=== PATIENT | female | born 1995 | race Caucasian/White ===

== ENCOUNTER 2020-04-17 17:18 | Inpatient (IN) ==
--- NOTE | 2020-04-17 20:38 | History & Physical Report ---
Date of Service April 17, 2020 Assessment & Plan (1) Desires (vaginal after ) trial: (2) Uterine contractions during : likely some effacement compared to prior exam by nurse, given pt subjectively feels her ctx are stronger, will monitor again for 2hr and reev aluate cx, no evid of active labor, will allow to ambulate with intermittent monitoring for now. fetus categ 1. discussed that if no change in 2hr, can offer mso4 rest as option given she feels ctx strong despite no progress or d/c home. History of Present Illness Chief Complaint: regular ctx Primary Care Provider: NO PCP 24yo at 39+wks lester presents to L&D with cc as noted. She notes increased intensity of ctx this afternoon and came to L&D for labor check at about 6pm. Cx then was 1cm/50%/ posterior. She notes ctx since then are more intense. Denies rom, vb. +FM. PNC c/b 1. Prior c/s, desires trial 2. GBS positive PNL RH pos, RI, GBS positive, covid Neg OBH: c/s at term JCBlair, intol of labor, sab x 1 GYNH: neg paps, no stds All Active Problems Migraine without aura Migraine Desires (vaginal after ) trial Encounter for supervision of normal in multigravida, antepartum Previous delivery affecting Allergies Allergy/AdvReac Type Severity Reaction Status Date / Time diphenhydramine Allergy Severe Anaphylaxis Verified 04/17/20 17:31 [From Benadryl Allergy] Home Medications Medication Instructions Recorded Confirmed Type PNV cmb#95-ferrous fumarate-FA 1 tab PO DAILY 04/17/20 04/17/20 History [] calcium carbonate-vitamin D3 1 tab PO DAILY 04/17/20 04/17/20 History [Calcium + D] Patient History Medical History Abnormal biochemical finding on screening of mother Cervical cancer screening History of chicken pox Missed headache in second trimester Vaginal bleeding in patient after first trimester Surgical History S/P section S/P cholecystectomy S/P wisdom tooth extraction Family History Mother Hypertension Father Hypertension Social History Smoking Status: Never smoker Hx Alcohol Use: No Hx Substance Use: No Preferred Language: Wolof Communication Ability: Effective Merchandise Deliverer Required: No Beliefs That Will Affect Care: None marital status: marital status details: Gregg Espinosa (26) [phone] Current Living Situation: Spouse Current Living Situation Comment: lives with spouse, daughter, hamster, cats- spouse changing litter current occupational status: unemployed current occupation: homemaker Other Information That Helps Us Care for You: No Feels Safe at Home: Yes Safety Concerns: Feels Safe At This Time Assistive Devices: None Physical Exam Constitutional: WD/WN, vitals as above Gastrointestinal (Abdomen): Percussion/Palpation: abdomen soft (gravid); abdomen nontender Neurologic: grossly normal Psychiatric: A+Ox3, euthymic affect Genitourinary: Manual OB Exam: + cervical dilation (1+), + cervical effacement (75%) and + station -2 OB Exam Monitor Tracing: + external FHT monitor used (150 mod variability reactive ), + external uterine monitor used (q1-3), + category I and + normal FHT variability Results & Data ([facility]) Vital Signs (Past 12 Hours) Vital Signs Temp Pulse Resp BP 04/17/20 17:35 98.2 F 92 H 20 124/70 04/17/20 17:24 98.2 F 92 H 20 124/70 Coding Level of Care Code None Diagnoses Desires (vaginal after ) trial O34.219 Uterine contractions during O62.2
[2020-04-17] MEDS ORDERED: MoRPHine SULFATE 10 MG/ML CARP/VIAL IM STA (22:28)
[2020-04-17] MEDS ORDERED: PROMETHAZINE HCL INJ 25 MG/ML 1 ML VIAL IM STA (22:28)
--- NOTE | 2020-04-17 22:28 | Obstetrical Progress Note ---
Date of Service April 17, 2020 Assessment & Plan (1) Desires (vaginal after ) trial: (2) Uterine contractions during : discussed with patient, no significant change. fhts categ 1. offered morphine rest and she accepts. Subjective pt says her ctx are strong. denies rom, no vb. +FM Review of Systems Review of Systems: per hpi Physical Exam Constitutional: WD/WN, vitals as above Psychiatric: A+Ox3, euthymic affect Genitourinary: Manual OB Exam: + cervical dilation (1+), + cervical effacement 80% and + station -2 OB Exam Monitor Tracing: + external FHT monitor used (155 mod variability), + external uterine monitor used (q2-5), + category I and + normal FHT variability Results & Data ([facility]) Vital Signs (Past 12 Hours) Vital Signs Temp Pulse Resp BP 04/17/20 17:35 98.2 F 92 H 20 124/70 04/17/20 17:24 98.2 F 92 H 20 124/70 PG Care Time/CCT Total # of Minutes Spent Total Time Spent with Patient: Total time spent is greater than 50% in coordination of care (as documented) at patient's floor/unit and/or counseling patient: Coding Level of Care Code None Diagnoses Desires (vaginal after ) trial O34.219 Uterine contractions during O62.2
[2020-04-18] MEDS: LACTATED RINGER'S 1,000 ML IV SCH ×4 (02:09→23:03)
[2020-04-18] MEDS ORDERED: ceFAZolin 2000MG 2,000 MG/15 ML SYR IV SCH (06:00)
[2020-04-18] MEDS ORDERED: PENICILLIN G POTASSIUM 3 MU in DEXTROSE 5% 100 ML IV PRN (06:29)
[2020-04-18] MEDS ORDERED: PENICILLIN G POTASSIUM 6 MU in DEXTROSE 5% 250 ML IV STA (06:29)
[2020-04-18] MEDS ORDERED: OXYTOCIN 30 UNITS/500 ML BAG IV PRN (06:29)
[2020-04-18] MEDS ORDERED: LACTATED RINGER'S 1,000 ML IV PRN (06:29)
[2020-04-18] MEDS ORDERED: ePHEDrine sulfate 50 MG/ML AMP ONE (06:34)
[2020-04-18] MEDS ORDERED: SODIUM CHLORIDE 0.9% INJ 10 ML VIAL ONE ×2 (06:34→07:38)
[2020-04-18] MEDS ORDERED: BUPIVACAINE 0.25% 30 ML VIAL ONE (06:35)
[2020-04-18] MEDS ORDERED: fentaNYL citrate 100 MCG/2 ML VIAL ONE ×2 (06:35→07:29)
[2020-04-18] MEDS ORDERED: fentaNYL 2MCG/ML ROPIVACAINE 1.25MG/ML 100 ML BAG EPI ONE (06:35)
[2020-04-18 07:07] LABS: Hematocrit (blood only) 36.7 % (37-47); Hemoglobin 12.1 g/dL (12.0-16.0); Mean Corpuscular Hemoglobin 30.3 pg (25-34); Mean Platelet Volume 10.5 fL (7.4-10.4); Platelet Count 248 K/uL (130-400); RDW Coefficient of Variation 13.6 % (11.5-14.5); RDW Standard Deviation 45.3 fL (36.4-46.3); Red Blood Count 3.99 M/uL (4.2-5.4); White Blood Count 12.07 K/uL (4.8-10.8)
[2020-04-18] MEDS ORDERED: LACTATED RINGER'S 1,000 ML IV SCH (07:15)
--- NOTE | 2020-04-18 07:16 | Labor Progress Brief Note ---
Date of Service April 18, 2020 Subjective Reason For Note: Change In Status pt with large amount of vaginal mucus, ctx are less frequent. initial eval about 1hr ago with cx 5cm but ?early decels or other decels. Assessment & Plan (1) Desires (vaginal after ) trial: (2) Active labor at term: (3) heart deceleration: discussed with pt since placing internal monitoring, noting occas variable and occas late decel. she is remote from delivery and i rec c/s. she agrees, consent rev and signed. anesth, or, and peds aware. categ 2 fhts. Admission and Anticipated Discharge Date Admission Date: April 18, 2020 Physical Exam Constitutional: WD/WN, vitals as above Genitourinary: Manual OB Exam: + cervical dilation 6 cm, + cervical effacement 80%, + station -2 and + amniotic fluid (arom and iupc and fse placed. ) OB Exam Monitor Tracing: + external FHT monitor used (150 ? decels, ? early), + external uterine monitor used (q2-5), + category II and + normal FHT variability Results & Data ([facility]) Vital Signs (Past 12 Hours) Vital Signs Temp Pulse Resp BP Pulse Ox 04/18/20 07:07 173 H 98 04/18/20 07:02 88 98 04/18/20 06:57 85 99 04/18/20 06:52 85 100 04/18/20 06:47 87 98 04/18/20 06:42 91 H 99 04/18/20 06:37 83 98 04/18/20 06:32 96 H 98 04/18/20 06:27 105 H 100 04/18/20 06:22 75 97 04/18/20 06:17 74 97 04/18/20 06:12 73 99 04/18/20 06:07 80 100 04/18/20 06:02 75 98 04/18/20 05:57 84 99 04/18/20 05:52 96 H 98 04/18/20 05:47 68 96 04/18/20 05:42 79 97 04/18/20 05:37 83 98 04/18/20 05:32 68 97 04/18/20 05:27 94 H 96 04/18/20 05:22 60 98 04/18/20 05:19 83 94 11/18/20 05:17 67 95 11/18/20 05:12 72 96 /18/20 05:07 69 95 /18/20 05:02 66 96 18/20 04:57 67 96 18/20 04:52 69 96 /18/20 04:47 80 98 /18/20 04:45 99.0 F 80 18 97/54 L 18/20 04:42 97 H 99 18/20 04:37 92 H 98 18/20 04:32 86 97 18/20 04:27 96 H 98 18/20 04:22 85 99 /18/20 04:17 75 98 18/20 04:12 79 97 18/20 04:07 85 97 18/20 04:02 101 H 99 18/20 03:57 79 97 18/20 03:52 76 97 /18/20 03:47 69 96 18/20 03:42 82 96 18/20 03:37 109 H 98 18/20 03:32 70 98 /18/20 03:27 71 97 18/20 03:22 94 H 99 18/20 03:17 85 100 18/20 03:12 87 100 18/20 03:07 108 H 97 18/20 03:02 95 H 99 18/20 03:00 18 18/20 02:57 70 98 /18/20 02:52 79 99 18/20 02:47 103 H 100 18/20 02:35 104 H 99 18/20 02:30 81 97 /18/20 02:25 69 96 18/20 02:20 108 H 98 18/20 02:15 70 96 18/20 02:10 69 97 18/20 02:05 88 98 18/20 02:00 80 98 18/20 01:55 69 96 /18/20 01:50 71 96 /18/20 01:49 105 H 93 /18/20 01:45 68 96 18/20 01:40 72 96 /18/20 01:35 71 97 18/20 01:30 81 97 /18/20 01:25 84 96 11/18/20 01:20 86 96 04/18/20 01:15 70 97 04/18/20 01:10 68 97 04/18/20 01:05 66 96 04/18/20 01:00 72 98 04/18/20 00:55 87 97 04/18/20 00:54 86 94 04/18/20 00:50 95 H 96 04/18/20 00:45 72 96 04/18/20 00:40 85 96 04/18/20 00:35 86 97 04/18/20 00:30 98 H 18 99 04/18/20 00:25 67 96 04/18/20 00:20 71 97 04/18/20 00:15 69 97 04/18/20 00:10 75 97 04/18/20 00:05 72 95 04/18/20 00:00 94 H 18 98 04/17/20 23:55 67 97 04/17/20 23:50 79 98 04/17/20 23:45 71 96 04/17/20 23:40 93 H 97 04/17/20 23:35 69 97 04/17/20 23:30 71 18 97 04/17/20 23:25 67 97 04/17/20 23:20 91 H 99 04/17/20 23:15 77 99 04/17/20 23:10 74 99 04/17/20 23:05 72 98 04/17/20 23:00 86 18 98 04/17/20 22:55 76 98 04/17/20 22:50 98.8 F 75 129/66 98 04/17/20 22:45 73 98 Coding Level of Care Code None Diagnoses Desires (vaginal after ) trial O34.219 Active labor at term heart deceleration
--- NOTE | 2020-04-18 07:18 | Anesthesiology Consultation ---
Date of Service April 18, 2020 Assessment & Plan (1) Encounter for pre-operative examination: Chart Review Chart Review: Acceptable Risk for Surgery and Patient NOT seen in Pre Admission Testing Consults Requested none ASA ASA2E Proposed Anesthesia Anesthesia Type: Spinal Risk / Benefits Reviewed With: PT / POA / Parent / Guardian, Accepts Plan and Informed Consent Obtained History Height/Weight Height: 5 ft 1 in Weight: 82.1 kg Allergies Allergy/AdvReac Type Severity Reaction Status Date / Time diphenhydramine Allergy Severe Anaphylaxis Verified 04/17/20 17:31 [From Benadryl Allergy] Medications Home Medications Medication Instructions Recorded Confirmed Last Taken PNV cmb#95-ferrous fumarate-FA 1 tab PO DAILY 04/17/20 04/17/20 04/16/20 23:00 [] calcium carbonate-vitamin D3 1 tab PO DAILY 04/17/20 04/17/20 04/16/20 23:00 [Calcium + D] Active Medications Generic Name Dose Route Start Last Admin Trade Name Freq PRN Reason Stop Dose Admin Lactated Ringer's 1,000 mls @ 125 mls/hr 04/18/20 02:00 04/18/20 05:39 Lr IV 05/18/20 01:59 999 mls/hr .Q8H NILSON Administration Penicillin G Potassium 6 mu/ 262 mls @ 262 mls/hr 04/18/20 06:29 04/18/20 06:48 Dextrose IV 04/18/20 07:28 262 mls/hr NOW STA Administration Past Medical History Medical History Abnormal biochemical finding on screening of mother Cervical cancer screening History of chicken pox Missed headache in second trimester Vaginal bleeding in patient after first trimester Past Family History Family History Mother Hypertension Father Hypertension Past Surgical History Surgical History S/P section S/P cholecystectomy S/P wisdom tooth extraction Social History Smoking Status: Never smoker Hx Alcohol Use: No Hx Substance Use: No Physical Exam Vital Signs Last Vital Signs Temp 37.2 C 04/18/20 04:45 Pulse 98 H 04/18/20 07:14 Resp 18 04/18/20 04:45 BP 97/54 L 04/18/20 04:45 Pulse Ox 98 04/18/20 07:14 Constitutional not obese (gravid uterus) ENMT Mouth: no TMJ abnormality and oral opening not small Thyromental Distance: > or= 3.5 Finger Breadths Mallampati Class: III Neck normal visual inspection; neck extension not limited Respiratory normal respiratory effort Auscultation: lungs clear to auscultation bilaterally Cardiovascular Rate/Rhythm: regular rate and regular rhythm Heart Sounds: no murmur Neurologic moves all extremities Motor/Sensory: no sensory deficit Psychiatric Orientation: alert and oriented x 3 Testing Laboratory Results 04/18/20 06:51
[2020-04-18] MEDS ORDERED: CITRIC ACID/SODIUM CITRATE 15 ML UDC ONE (07:25)
[2020-04-18] MEDS ORDERED: MoRPHine SULFATE PF 1 MG/ML 10 ML AMP/VIAL ONE (07:29)
--- NOTE | 2020-04-18 07:35 | Labor Progress Brief Note ---
Date of Service April 18, 2020 Subjective pt ready to proceed with c/s, consent signed. Assessment & Plan (1) Desires (vaginal after ) trial: (2) Active labor at term: (3) heart deceleration: decels intermittent remote from delivery in trial. rec c/s to couple and as stated before, couple agrees. Admission and Anticipated Discharge Date Admission Date: April 18, 2020 Physical Exam Constitutional: WD/WN, vitals as above Genitourinary: Manual OB Exam: + cervical dilation (no change) OB Exam Monitor Tracing: + scalp electrode used (150, mod variabilty categ2) and + intra-uterine pressure catheter used (mvu's inadeq) contractions that are stronger, fetus categ 2, less strong categ 1. Results & Data ([facility]) Vital Signs (Past 12 Hours) Vital Signs Temp Pulse Resp BP Pulse Ox 04/18/20 07:29 106 H 98 04/18/20 07:24 86 98 04/18/20 07:19 101 H 98 04/18/20 07:18 85 126/59 L 04/18/20 07:14 98 H 98 04/18/20 07:07 173 H 98 04/18/20 07:02 88 98 04/18/20 06:57 85 99 04/18/20 06:52 85 100 04/18/20 06:47 87 98 04/18/20 06:42 91 H 99 04/18/20 06:37 83 98 04/18/20 06:32 96 H 98 04/18/20 06:27 105 H 100 04/18/20 06:22 75 97 04/18/20 06:17 74 97 04/18/20 06:12 73 99 04/18/20 06:07 80 100 04/18/20 06:02 75 98 04/18/20 05:57 84 99 04/18/20 05:52 96 H 98 04/18/20 05:47 68 96 04/18/20 05:42 79 97 04/18/20 05:37 83 98 04/18/20 05:32 68 97 04/18/20 05:27 94 H 96 04/18/20 05:22 60 98 04/18/20 05:19 83 94 04/18/20 05:17 67 95 11/18/20 05:12 72 96 11/18/20 05:07 69 95 /18/20 05:02 66 96 18/20 04:57 67 96 18/20 04:52 69 96 18/20 04:47 80 98 18/20 04:45 99.0 F 80 18 97/54 L 18/20 04:42 97 H 99 18/20 04:37 92 H 98 18/20 04:32 86 97 18/20 04:27 96 H 98 18/20 04:22 85 99 18/20 04:17 75 98 18/20 04:12 79 97 18/20 04:07 85 97 18/20 04:02 101 H 99 18/20 03:57 79 97 18/20 03:52 76 97 18/20 03:47 69 96 18/20 03:42 82 96 18/20 03:37 109 H 98 18/20 03:32 70 98 18/20 03:27 71 97 18/20 03:22 94 H 99 18/20 03:17 85 100 18/20 03:12 87 100 18/20 03:07 108 H 97 18/20 03:02 95 H 99 18/20 03:00 18 18/20 02:57 70 98 18/20 02:52 79 99 18/20 02:47 103 H 100 18/20 02:35 104 H 99 18/20 02:30 81 97 18/20 02:25 69 96 18/20 02:20 108 H 98 18/20 02:15 70 96 18/20 02:10 69 97 18/20 02:05 88 98 18/20 02:00 80 98 18/20 01:55 69 96 18/20 01:50 71 96 18/20 01:49 105 H 93 18/20 01:45 68 96 18/20 01:40 72 96 /18/20 01:35 71 97 18/20 01:30 81 97 18/20 01:25 84 96 18/20 01:20 86 96 04/18/20 01:15 70 97 04/18/20 01:10 68 97 04/18/20 01:05 66 96 04/18/20 01:00 72 98 04/18/20 00:55 87 97 04/18/20 00:54 86 94 04/18/20 00:50 95 H 96 04/18/20 00:45 72 96 04/18/20 00:40 85 96 04/18/20 00:35 86 97 04/18/20 00:30 98 H 18 99 04/18/20 00:25 67 96 04/18/20 00:20 71 97 04/18/20 00:15 69 97 04/18/20 00:10 75 97 04/18/20 00:05 72 95 04/18/20 00:00 94 H 18 98 04/17/20 23:55 67 97 04/17/20 23:50 79 98 04/17/20 23:45 71 96 04/17/20 23:40 93 H 97 04/17/20 23:35 69 97 04/17/20 23:30 71 18 97 04/17/20 23:25 67 97 04/17/20 23:20 91 H 99 04/17/20 23:15 77 99 04/17/20 23:10 74 99 04/17/20 23:05 72 98 04/17/20 23:00 86 18 98 04/17/20 22:55 76 98 04/17/20 22:50 98.8 F 75 129/66 98 04/17/20 22:45 73 98 Coding Level of Care Code None Diagnoses Desires (vaginal after ) trial O34.219 Active labor at term heart deceleration
[2020-04-18] MEDS ORDERED: OXYTOCIN 10 UNITS/ML VIAL ONE (07:38)
[2020-04-18] MEDS ORDERED: ONDANSETRON INJ 2 MG/ML 2 ML VIAL ONE (07:38)
[2020-04-18] MEDS ORDERED: KETOROLAC 30 MG/ML VIAL ONE (08:28)
--- NOTE | 2020-04-18 08:39 | Post Operative Brief Note ---
PG Immediate Post Op with CF Date of Surgery April 18, 2020 Pre & Post Diagnosis Operation Date: 04/18/20 07:30 Pre-Op Diagnosis: 39 plus weeks gestation trial vaginal after active labor intolerance to labor Post-Op Diagnosis: same I identified the patient and participated in the time-out.: Yes Procedure Operation Date: 04/18/20 07:30 Actual Procedures p Repeat Low Transverse Section in labor and delivery for live female delivered at 0804(Left) - Jessi Walton MD, FACOG Surgeon Jessi Walton MD, FACOG Engineering Designer jeremi Estimated Blood Loss 600 Findings Consistent with Post-Op Diagnosis (viable female, body and nuchal cord noted, apgars 9,9. mec stained fluid. normal uterus, tubes and ovaries bilaterally) Fluids 1250 Specimens Specimen Description: placenta-exam cord blood arterial and venous cord blood gases Drains Agosto Catheter Anesthesia Type Spinal Complications none Disposition Accompanied Patient To Recovery: No Disposition: L&D
--- NOTE | 2020-04-18 08:46 | Operative Report ---
PG Post Operative Report Pre & Post Diagnosis Operation Date: 04/18/20 07:30 Pre-Op Diagnosis: 39+weeks EGA Vaginal after trial Active labor intolerance to labor Post-Op Diagnosis: Repeat low transverse uterine section for delivery of live female at 0804 I identified the patient and participated in the time-out.: Yes Procedure Operation Date: 04/18/20 07:30 Actual Procedures Repeat Low Transverse Section Surgeon Jessi Walton MD, FACOG Clarifying Plant Operator Derrick Estimated Blood Loss 600 Findings Consistent with Post-Op Diagnosis (viable female, body and nuchal cord noted, apgars 9,9. mec stained fluid. normal uterus, tubes and ovaries bilaterally) Fluids 1250 Specimens placenta, cord blood, cord gases Drains sandoval Anesthesia Type Spinal Complications none Disposition Accompanied Patient To Recovery: No Disposition: L&D Indications 24yo at 39wks who presented in latent labor with planned trial. She was given morphine rest overnight and subsequently progressed to 5cm. Unfortunately the heart tones became category 2 and she was remote from delivery and recommended to proceed with section and she agreed. See the notes from labor for more detail. Description of Procedure The patient was taken to the operating room and identified. After adequate anesthesia was obtained, she was placed in the supine position with a leftward tilt on the operating table and prepped and draped in the usual sterile fashion. A sandoval catheter had already been placed. The knife was used to create a Pfannensteil skin incision that was carried down to the underlying layer of fascia. The fascia was nicked in the midline and this opening was extended laterally using Nunn scissors. Jacinto clamps were placed on the superior and inferior aspect of the fascial incision tenting it upward and the underlying rectus muscles were dissected off the overlying fascia both sharply and bluntly using Nunn scissors. The rectus muscles were bluntly in the midline. The peritoneal cavity was bluntly entered into. This opening was stretched. The bladder blade was placed. The vesicouterine peritoneum was elevated and opened up into and the bladder flap was created digitally and bladder blade was replaced. The knife was used to create a hysterotomy and this opening was stretched. The operators hand was placed through the hysterotomy and the bladder blade was removed. The head was elevated and flexed and with fundal pressure the head was delivered. The shoulders and body were rapidly delivered. The cord was clamped and cut and the 's mouth and nares were bulb suction. The infant was handed off to the awaiting pediatricians. Cord blood was obtained. The placenta was manually expressed. The uterus was exteriorized and cleared of all clots and debris. Dilute IV Pitocin was begun. The uterine tone was improving. The hysterotomy was closed in a running interlocking fashion using 0 Vicryl followed by a second imbricating layer of 0 Vicryl. The hysterotomy was hemostatic. The pelvis was evaluated and any blood and clot was evacuated. The uterus was returned to the abdomen. The gutters were cleared of all clots and debris. The hysterotomy was reinspected and noted to be hemostatic. The fascia was then closed in running fashion using 0 Vicryl. The subcutaneous fat was copiously irrigated and reapproximated using 2-0 chromic. The skin was closed in a subcuticular fashion using 4-0 Monocryl. At this point the procedure was terminated. The patient was transferred to the recovery room in stable condition. All sponge, lap and needle counts are correct x2. I attest to the content of the Intraoperative Record and any orders documented therein. Any exceptions are noted below. OB Procedure charges OB Charges 73502 C/S p Trial
[2020-04-18 08:51] LABS: Base Excess Cord Arterial Bld -1.5 mEq/L (-9-1.8); CO2 Cord Arterial Blood 58 mmHg (39.1-73.5); HCO3 Cord Arterial Blood 27 mmol/L (19.7-28.5); PO2 Cord Arterial Blood 12 mmHg (4.1-31.7); pH Cord Arterial Blood 7.28 (7.1-7.38)
[2020-04-18 08:56] LABS: Oxygen Sat Cord Arterial Blood < 60.0 % (<60)
[2020-04-18 08:57] LABS: Base Excess Cord Venous Blood -1.7 mEq/L (-7.7-1.9); Cord Venous Blood HCO3 24 mmol/L (18.4-26.8); Cord Venous Blood PCO2 45 mmHg (30.4-57.2); Cord Venous Blood PO2 23 mmHg (14.1-43.3); Cord Venous Blood pH 7.35 (7.20-7.44)
[2020-04-18 08:58] LABS: O2 Saturation Cord Venous Bld < 60.0 % (<68)
--- NOTE | 2020-04-18 08:59 | Anesthesiology Progress Note ---
Date of Service April 18, 2020 Anesthesia Post Procedure Vital Signs Vital Signs: Temp Pulse Resp BP Pulse Ox 04/18/20 08:57 68 100/58 L 04/18/20 08:56 68 95 04/18/20 08:55 68 93 04/18/20 08:51 71 96 20 08:47 69 104/52 L 04/18/20 08:46 78 97 04/18/20 07:29 106 H 98 04/18/20 07:24 86 98 04/18/20 07:19 101 H 98 04/18/20 07:18 85 126/59 L 04/18/20 07:14 98 H 98 04/18/20 07:07 173 H 98 04/18/20 07:02 88 98 04/18/20 06:57 85 99 04/18/20 06:52 85 100 04/18/20 06:47 87 98 04/18/20 06:42 91 H 99 04/18/20 06:37 83 98 04/18/20 06:32 96 H 98 04/18/20 06:27 105 H 100 04/18/20 06:22 75 97 04/18/20 06:17 74 97 04/18/20 06:12 73 99 04/18/20 06:07 80 100 04/18/20 06:02 75 98 04/18/20 05:57 84 99 04/18/20 05:52 96 H 98 04/18/20 05:47 68 96 04/18/20 05:42 79 97 04/18/20 05:37 83 98 04/18/20 05:32 68 97 04/18/20 05:27 94 H 96 04/18/20 05:22 60 98 20 05:19 83 94 20 05:17 67 95 1820 05:12 72 96 20 05:07 69 95 20 05:02 66 96 20 04:57 67 96 20 04:52 69 96 20 04:47 80 98 04/18/20 04:45 37.2 C 80 18 97/54 L 04/18/20 04:42 97 H 99 04/18/20 04:37 92 H 98 04/18/20 04:32 86 97 11/18/20 04:27 96 H 98 11/18/20 04:22 85 99 /18/20 04:17 75 98 /18/20 04:12 79 97 18/20 04:07 85 97 18/20 04:02 101 H 99 18/20 03:57 79 97 18/20 03:52 76 97 18/20 03:47 69 96 18/20 03:42 82 96 18/20 03:37 109 H 98 18/20 03:32 70 98 18/20 03:27 71 97 18/20 03:22 94 H 99 18/20 03:17 85 100 18/20 03:12 87 100 18/20 03:07 108 H 97 18/20 03:02 95 H 99 18/20 03:00 18 18/20 02:57 70 98 18/20 02:52 79 99 18/20 02:47 103 H 100 18/20 02:35 104 H 99 18/20 02:30 81 97 18/20 02:25 69 96 18/20 02:20 108 H 98 18/20 02:15 70 96 18/20 02:10 69 97 18/20 02:05 88 98 18/20 02:00 80 98 18/20 01:55 69 96 18/20 01:50 71 96 18/20 01:49 105 H 93 18/20 01:45 68 96 18/20 01:40 72 96 18/20 01:35 71 97 /18/20 01:30 81 97 18/20 01:25 84 96 /18/20 01:20 86 96 18/20 01:15 70 97 18/20 01:10 68 97 18/20 01:05 66 96 18/20 01:00 72 98 /18/20 00:55 87 97 /18/20 00:54 86 94 /18/20 00:50 95 H 96 18/20 00:45 72 96 /18/20 00:40 85 96 18/20 00:35 86 97 11/18/20 00:30 98 H 18 99 04/18/20 00:25 67 96 04/18/20 00:20 71 97 04/18/20 00:15 69 97 04/18/20 00:10 75 97 04/18/20 00:05 72 95 04/18/20 00:00 94 H 18 98 04/17/20 23:55 67 97 04/17/20 23:50 79 98 04/17/20 23:45 71 96 04/17/20 23:40 93 H 97 04/17/20 23:35 69 97 04/17/20 23:30 71 18 97 04/17/20 23:25 67 97 04/17/20 23:20 91 H 99 04/17/20 23:15 77 99 04/17/20 23:10 74 99 04/17/20 23:05 72 98 04/17/20 23:00 86 18 98 04/17/20 22:55 76 98 04/17/20 22:50 37.1 C 75 129/66 98 04/17/20 22:45 73 98 04/17/20 17:35 36.8 C 92 H 20 124/70 04/17/20 17:24 36.8 C 92 H 20 124/70 Transfer of Care Handoff Completed per policy Notes Mental Status: alert / awake / arousable and participated in evaluation Nausea / Vomiting: adequately controlled Pain: adequately controlled Airway Patency, RR, SpO2: stable & adequate BP & HR: stable & adequate Hydration State: stable & adequate Neuraxial Anesthesia: was administered and sensory block is resolving Anesthetic Complications: no major complications apparent and Pt Satisfied with anesthetic care
[2020-04-18] MEDS ORDERED: ONDANSETRON INJ 2 MG/ML 2 ML VIAL IV PRN (09:01)
[2020-04-18] MEDS ORDERED: NALOXONE HCL 0.08 MG in SYRINGE 1.8 ML IV PRN (09:01)
[2020-04-18] MEDS ORDERED: LACTATED RINGER'S 500 ML IV PRN (09:01)
[2020-04-18] MEDS ORDERED: HYDROmorphone INJ 1 MG/ML SYRINGE IV PRN (09:01)
[2020-04-18] MEDS ORDERED: NALOXONE HCL 1 MG in SODIUM CHLORIDE 0.9% 1000ML 1,000 ML IV PRN (09:01)
[2020-04-18] MEDS ORDERED: NALOXONE HCL 0.4 MG/1 ML VIAL/CARP IV PRN (09:01)
[2020-04-18] MEDS ORDERED: ePHEDrine sulfate 50 MG/ML AMP IV PRN (09:01)
[2020-04-18] MEDS ORDERED: MoRPHine SULFATE PF 1 MG/ML 10 ML AMP/VIAL INT SPINAL ONE (09:01)
[2020-04-18] MEDS ORDERED: SODIUM CHLORIDE 0.9% 1000ML 1,000 ML IV SCH (09:15)
[2020-04-18] MEDS ORDERED: DC INTRASPINAL MORPHINE SCH (09:15)
[2020-04-18] MEDS ORDERED: NO NARCOTICS OR SEDATIVES SCH (09:15)
[2020-04-18] MEDS ORDERED: BENZOCAINE 20% AER SPR 82.5 GM CAN EXT PRN (10:02)
[2020-04-18] MEDS ORDERED: DIPHTHERIA/TETANUS/PERTUSSIS 0.5 ML SYR/VIAL IM ONE (10:02)
[2020-04-18] MEDS ORDERED: HYDROCORTISONE ACETATE 25 MG SUPP PR PRN (10:02)
[2020-04-18] MEDS ORDERED: SUPERCREAM 0.870% 15 GM JAR EXT PRN (10:02)
[2020-04-18] MEDS ORDERED: SENNA 8.6 MG TAB PO PRN (10:02)
[2020-04-18] MEDS ORDERED: MAGNESIUM HYDROXIDE SUSP 30 ML UDC PO PRN (10:02)
[2020-04-18] MEDS: OXYTOCIN 30 UNITS in LACTATED RINGER'S 1,000 ML IV SCH ×2 (10:49→19:17)
[2020-04-18] MEDS: KETOROLAC 30 MG/ML VIAL IV PRN ×2 (13:24→19:45)
[2020-04-18] MEDS: SIMETHICONE 80 MG CHEW PO SCH ×3 (13:39→23:03)
[2020-04-18] MEDS: DOCUSATE SODIUM 100 MG CAP PO SCH (23:02)
[2020-04-19] MEDS: LACTATED RINGER'S 1,000 ML IV SCH ×2 (01:15→11:14)
[2020-04-19] MEDS: KETOROLAC 30 MG/ML VIAL IV PRN (02:39)
[2020-04-19] MEDS ORDERED: ONDANSETRON INJ 2 MG/ML 2 ML VIAL IV PRN (03:02)
[2020-04-19] MEDS ORDERED: KETOROLAC 30 MG/ML VIAL IV PRN (03:02)
[2020-04-19] MEDS ORDERED: PROMETHAZINE HCL 25 MG in SODIUM CHLORIDE 0.9% 50 ML IV PRN (03:02)
[2020-04-19] MEDS: oxyCODONE/ACETAMINOPHEN 5mg/325mg TAB PO PRN ×3 (06:20→20:18)
--- NOTE | 2020-04-19 06:46 | Obstetrical Progress Note ---
Date of Service <Amari Vo MD - Last Filed: 04/19/20 06:46> April 19, 2020 Assessment & Plan <Amari Vo MD - Last Filed: 04/19/20 06:46> (1) Previous delivery affecting : Neisha is a 24 y/o female who is POD #1 following RCS after failed TOLAC at 39-6/7 WGA - Feels well today. Eating well, voiding well, ambulating well. - Pain well controlled with ibuprofen 600mg Q4H PRN. - Routine post-operative care -- OOB, ambulation, diet progression as tolerated - After discharge will have [address] Walton Subjective <Amari Vo MD - Last Filed: 04/19/20 06:46> Neisha is a 24 y/o female who is POD #1 following RCS after failed TOLAC at 39-6/7 WGA. She reports feeling well overall this morning. Endorses some abdominal cramping & 4/10 pain well managed on analgesics. Voiding without difficulty since Agosto removal. Tolerating meals overnight and able to ambulate some. Endorses passing gas but not yet bowel movement. Has some persistent lochia with some improvement this morning. Bottle feeding. Review of Systems Denies fever, chills, sweats Denies shortness of breath, difficulty breathing, chest pain, palpitations, chest pressure. Denies breast pain. Denies dysuria. Denies headache or changes in vision. Physical Exam <Amari Vo MD - Last Filed: 04/19/20 06:46> General: Alert, oriented. No acute distress. Cardiac: Regular rate and rhythm, no murmurs/rubs/gallops. Respiratory: Clear to auscultation bilaterally a/p, no wheezes/rales/rhonchi. No increased work of breathing. Symmetrical chest rise. No respiratory distress. Abdomen: Soft, nontender, nondistended. Bowel sounds present. Uterus: Uterine fundus firm, palpable 2-3 cm below umbilicus. Surgical bandage still in place, but adjacent area appears c/d/i. No erythema. Slight TTP. Lower Extremities: No lower extremity edema or swelling. No deep calf pain. Matthew's negative bilaterally. Results & Data ([facility]) <Amari Vo MD - Last Filed: 04/19/20 06:46> Vital Signs (Past 12 Hours) Vital Signs Temp Pulse Resp BP Pulse Ox Pulse Ox 04/19/20 03:02 18 97 04/19/20 03:01 36.6 C 75 18 93/59 L 99 04/19/20 02:00 18 99 04/19/20 01:00 18 95 04/19/20 00:00 18 98 04/18/20 23:46 36.8 C 81 18 102/65 98 04/18/20 23:00 18 95 04/18/20 22:41 16 98 04/18/20 22:00 97 04/18/20 21:53 18 94 04/18/20 21:00 18 96 04/18/20 20:00 36.8 C 88 18 94/60 L 97 97 <Trang Meza DO - Last Filed: 04/19/20 07:51> Co-Signing Physician Notes Resident Physician Supervision Note: I was present with Dr. Vo during the history and exam. I discussed the case with the resident and agree with the findings and plan as documented in the note. Any exceptions or clarifications are listed here: POD#1 doing well. Incision CDI. Continue ambulation, PO diet increase. Documented By: Trang Meza DO Resident Activity Tracking <Amari Vo MD - Last Filed: 04/19/20 06:46> Resident Involvement: Resident Care Provided Care Provided: Adult Hospital Medicine and OB Delivery
[2020-04-19 08:09] LABS: Basophils # (auto) 0.02 K/uL (0-0.2); Basophils % (auto) 0.2 %; Eosinophils # (auto) 0.13 K/uL (0-0.5); Eosinophils % (auto) 1.1 %; Hematocrit (blood only) 27.9 % (37-47); Immature Granulocytes # (auto) 0.05 K/uL (0.00-0.02); Immature Granulocytes % (auto) 0.4 %; Lymphocytes # (auto) 2.58 K/uL (1.2-3.4); Lymphocytes % (auto) 21.6 %; Mean Corpuscular Hemoglobin 30.3 pg (25-34); Mean Corpuscular Hgb Conc 32.3 g/dL (32-36); Mean Corpuscular Volume 93.9 fL (80-100); Mean Platelet Volume 10.4 fL (7.4-10.4); Monocytes # (auto) 0.92 K/uL (0.11-0.59); Monocytes % (auto) 7.7 %; Neutrophils # (auto) 8.23 K/uL (1.4-6.5); Platelet Count 228 K/uL (130-400); Red Blood Count 2.97 M/uL (4.2-5.4); White Blood Count 11.93 K/uL (4.8-10.8)
[2020-04-19] MEDS: PRENATAL VITAMIN 1 TAB PO SCH (08:47)
[2020-04-19] MEDS: DOCUSATE SODIUM 100 MG CAP PO SCH ×2 (08:47→21:18)
[2020-04-19] MEDS: SIMETHICONE 80 MG CHEW PO SCH ×4 (08:48→21:18)
[2020-04-19] MEDS: FERROUS SULFATE 325 MG TAB PO SCH (08:48)
[2020-04-19] MEDS: IBUPROFEN 600 MG TAB PO PRN ×2 (11:17→17:30)
[2020-04-20] MEDS: IBUPROFEN 600 MG TAB PO PRN ×3 (02:30→12:02)
[2020-04-20] MEDS: oxyCODONE/ACETAMINOPHEN 5mg/325mg TAB PO PRN ×3 (02:31→12:03)
--- NOTE | 2020-04-20 05:21 | Obstetrical Progress Note ---
Date of Service <Amari Vo MD - Last Filed: 04/20/20 06:22> April 20, 2020 Assessment & Plan <Amari Vo MD - Last Filed: 04/20/20 06:22> (1) Previous delivery affecting : Neisha is a 24 y/o female who is POD #2 following RCS after failed TOLAC at 39-6/7 WGA - Feels well today. Eating well, voiding well, ambulating well. - Pain well controlled with ibuprofen 600mg Q4H PRN. - Routine post-operative care -- OOB and ambulation throughout today - Patient desires to go home -- pending continued stability and peds, anticipate d/c home today - After discharge will have [address] Walton Subjective <Amari Vo MD - Last Filed: 04/20/20 06:22> Neisha is a 24 y/o female who is POD #2 following RCS after failed TOLAC at 39-6/7 WGA. She reports feeling well overall this morning. Endorses minimal abdominal cramping & pain well managed on analgesics. Voiding without difficulty. Tolerating meals overnight and able to ambulate some. Endorses passing gas but not yet bowel movement. Has some persistent lochia with some improvement this morning. Currently breast feeding without difficulty. Review of Systems Denies fever, chills, sweats Denies shortness of breath, difficulty breathing, chest pain, palpitations, chest pressure. Denies breast pain. Denies dysuria. Denies headache or changes in vision. Physical Exam <Amari Vo MD - Last Filed: 04/20/20 06:22> General: Alert, oriented. No acute distress. Cardiac: Regular rate and rhythm, no murmurs/rubs/gallops. Respiratory: Clear to auscultation bilaterally a/p, no wheezes/rales/rhonchi. No increased work of breathing. Symmetrical chest rise. No respiratory distress. Abdomen: Soft, nontender, nondistended. Bowel sounds present. Uterus: Uterine fundus firm, palpable 2 cm below umbilicus. Surgical scar clean and healing well. Lower Extremities: No lower extremity edema or swelling. No deep calf pain. Matthew's negative bilaterally. Results & Data ([facility]) <Amari Vo MD - Last Filed: 04/20/20 06:22> Vital Signs (Past 12 Hours) Vital Signs Temp Pulse Resp BP Pulse Ox 04/20/20 00:00 36.6 C 83 18 103/69 97 04/19/20 20:30 36.5 C 98 H 18 130/80 98 <Skye Chang MD, FACOG - Last Filed: 04/20/20 07:31> Co-Signing Physician Notes Resident Physician Supervision Note: I interviewed and examined the patient. Discussed with Dr. Vo and agree with findings and plan as documented in the note. Any exceptions or clarifications are listed here: Doing well. Patient desires d/c today. Instructions given. Documented By: Skye Chang MD, FACOG Resident Activity Tracking <Amari Vo MD - Last Filed: 04/20/20 06:22> Resident Involvement: Resident Care Provided Care Provided: Adult Hospital Medicine and OB Delivery
[2020-04-20 06:44] LABS: Hematocrit (blood only) 28.1 % (37-47); Hemoglobin 9.1 g/dL (12.0-16.0)
[2020-04-20] MEDS: SIMETHICONE 80 MG CHEW PO SCH (08:25)
[2020-04-20] MEDS: DOCUSATE SODIUM 100 MG CAP PO SCH (08:26)
[2020-04-20] MEDS: PRENATAL VITAMIN 1 TAB PO SCH (08:27)
[2020-04-20] MEDS: FERROUS SULFATE 325 MG TAB PO SCH (08:27)
--- NOTE | 2020-04-24 21:25 | Discharge Summary ---
Date of Service Date of admission: April 17, 2020 Date of discharge: April Admission HPI Per Admitting Provider 24yo at 39+wks lester presented to L&D with contractions with plan for . All Active Problems Migraine without aura Migraine Desires (vaginal after ) trial Encounter for supervision of normal in multigravida, antepartum Previous delivery affecting Discharge Data Consultations 04/18/20 06:29 Consult Anesthesiology Stat Procedures Performed Operation Date: 04/18/20 07:30 Actual Procedures Repeat Low Transverse Section - Jessi Walton MD, FACOG Hospital Course (1) Desires (vaginal after ) trial: (2) 39 weeks gestation of : (3) intolerance to labor, delivered, current hospitalization: The patient was admitted for observation on 04/17/20 due to intolerable contractions with no evidence of active labor for morphine rest. She did rest overnight and in the am was about 5cm dilated with intermittent contractions and then admitted in labor. She began penicillin for gbs positive status. Unfortunately, with her spontaneous labor pattern the fetus began developing decelerations of the heart rate, category 2 tracing. AROM was performed and internal monitors were placed to better assess the decelerations. No significant cervical progress was being made and due to the decelerations augmentation of labor was not prudent. Patient was counseled given that she was remote from delivery, section was recommended and she agreed. The patient underwent the above stated procedure without incident. Of note, the uterine scar at time of delivery was intact and the fetus did have a nuchal cord. Her postoperative course and recovery were uncomplicated. On her postoperative day #2 she was tolerating a regular diet, voiding spontaneously, ambulating without problem and was using oral meds for adequate pain control. Her postoperative hemoglobin was 9.1. She was given written and verbal discharge instructions and told to followup in office at 6wks. She was given appropriate pain medicine prescriptions. Coding Level of Care Code None Diagnoses Desires (vaginal after ) trial O34.219 39 weeks gestation of Z3A.39 intolerance to labor, delivered, current hospitalization O77.9
== END 2020-04-20 13:35 | disposition home or self-care (01) | DRG 788 ==
LOC: 4S1 17:18 → OPB 17:18 → 4S1 17:19 → 4S2 04-18 15:00

== ENCOUNTER 2023-08-23 07:50 | Inpatient (IN) ==
[2023-08-23] MEDS: LACTATED RINGER'S 1,000 ML IV SCH (08:00)
--- NOTE | 2023-08-23 08:02 | History & Physical Report ---
Date of Service August 23, 2023 Assessment & Plan (1) Previous delivery affecting , antepartum: Plan: Repeat section. The patient was counseled to the nature of the procedure including alternatives such as labor. Risks were discussed including bleeding infection injury to bowel bladder ureter vessels and even baby. The risks of internal organ injury were discussed as being higher with prior sections. Deep Vein Thrombosis, pulmonary embolus and breakdown of the incision discussed. Deep vein thrombosis pulmonary embolus hernia and failure of the incision to heal were discussed Patient verbalized understanding of this and was given ample time to ask questions Presents with rupture of membranes active labor with scheduled section tomorrow will arrange for section at this time History of Present Illness Primary Care Provider: NO PCP KIERRA Calculator Estimated Delivery Date Method Current WG Current Estimate 08/31/23 Ultrasound #1 38w 3d Other Estimates 08/25/23 LMP (Certain) 39w 2d LMP: 11/18/22 : 4 Full term: 2 Premature: 0 Total Number of Induced Abortions: 0 Total Number of Spontaneous Abortions: 1 Ectopics: 0 Multiple births: 0 Number of Living Children: 2 and Delivery Plans Previous x 2 - Repeat at 39 weeks. C/S SCHEDULED FOR 08/24/[address] RUIZ AND DR. AMBRIZ ASSIST Obesity (BMI between 35-39 @ beginning of ) *Growth US @ 32 wks *Weekly NSTs @ 36wks GBS Positive *Treat in Labor Allergies Allergy/AdvReac Type Severity Reaction Status Date / Time diphenhydramine Allergy Severe Anaphylaxis Verified 08/20/23 15:54 [From Benadryl Allergy] Home Medications Medication Instructions Recorded Confirmed Type 21-iron fu-folic acid 1 tab PO QAM 01/09/23 08/20/23 History [ Complete] ondansetron HCl 4 mg tablet 4 mg PO Q6H PRN nausea and 07/06/23 08/20/23 Rx vomiting #20 tabs famotidine 20 mg tablet 20 mg PO BID 08/06/23 08/20/23 History Patient History Medical History Anxiety no meds Hearing loss both ears History of chicken pox History of depression Migraine without aura Missed History of Surgical History S/P section x2 S/P cholecystectomy S/P wisdom tooth extraction Family History Mother Hypertension Father Hypertension Grandmother (Paternal) Cervical cancer Grandmother (Maternal) Thyroid disease Denies family history of Ovarian cancer Breast cancer Colorectal cancer Social History (Updated 05/31/23 @ 17:44 by Chinyere Callahan RN) Smoking Status: Never smoker Second Hand Exposure: No; Do You Dip or Chew Tobacco: No; Hx Alcohol Use: No Hx Substance Use: No Preferred Language: [place] Communication Ability: Effective Communication Ability Comment: hard hearing both ears; no device; wore hearing aids as a child; reads lips Manager Crisis Required: No Beliefs That Will Affect Care: None marital status: marital status details: Gregg Espinosa (29) Current Living Situation: Spouse Current Living Situation Comment: lives with spouse, 2 children, cats-spouse changing litter current occupational status: unemployed current occupation: homemaker Feels Safe at Home: Yes Assistive Devices: Glasses Physical Exam Constitutional: WD/WN, vitals as above well developed and well nourished Respiratory: normal respiratory effort, lungs clear to auscultation normal respiratory effort Cardiovascular: RRR, no murmur, no edema Gastrointestinal (Abdomen): normal bowel sounds, soft, nontender, no hepatosplenomegaly Coding Level of Care Code None Diagnoses Previous delivery affecting , antepartum O34.219
[2023-08-23] MEDS: ceFAZolin 2000MG 2,000 MG/15 ML SYR IV SCH (08:10)
[2023-08-23] MEDS: CITRIC ACID/SODIUM CITRATE 15 ML UDC ONE (08:17)
--- NOTE | 2023-08-23 08:20 | Anesthesiology Consultation ---
Date of Service August 23, 2023 Assessment & Plan Chart Review Chart Review: Acceptable Risk for Surgery Consults Requested none ASA ASA2E Proposed Anesthesia Anesthesia Type: Spinal Risk / Benefits Reviewed With: PT / POA / Parent / Guardian, Accepts Plan and Informed Consent Obtained History Surgery Operation Date: 08/23/23 08:30 Proposed Procedures p Section in LD - J. Terell Leung MD, FACOG Height/Weight Height: 5 ft 1 in Weight: 83.461 kg Allergies Allergy/AdvReac Type Severity Reaction Status Date / Time diphenhydramine Allergy Severe Anaphylaxis Verified 08/20/23 15:54 [From Benadryl Allergy] Medications Home Medications Medication Instructions Recorded Confirmed Last Taken 21-iron fu-folic acid 1 tab PO QAM 01/09/23 08/20/23 05/30/23 [ Complete] ondansetron HCl 4 mg tablet 4 mg PO Q6H PRN nausea and 07/06/23 08/20/23 Unknown vomiting #20 tabs famotidine 20 mg tablet 20 mg PO BID 08/06/23 08/20/23 Unknown Active Medications Generic Name Dose Route Start Last Admin Trade Name Freq PRN Reason Stop Dose Admin Cefazolin Sodium 2,000 mg in 15 mls @ 3.75 mls/min 08/23/23 06:00 08/23/23 08:10 Ancef 2000mg IV 08/24/23 05:59 3.75 mls/min PREOP NILSON Administration Protocol Lactated Ringer's 1,000 mls @ 999 mls/hr 08/23/23 08:00 08/23/23 08:00 Lr IV 08/23/23 09:00 999 mls/hr .Q1H1M NILSON Administration NPO Date Last Intake of Fluids: 08/22/23 Time Last Intake of Fluids: 23:00 Date Last Intake of Solids: 08/22/23 Time Last Intake of Solids: 23:00 Past Medical History Medical History Hearing loss both ears History of depression Anxiety no meds Migraine without aura History of chicken pox Missed History of Exercise / Class Metabolic Activity II 4-5 Yardwork/Stairs/Walk up hill Past Family History Family History Mother Hypertension Father Hypertension Grandmother (Paternal) Cervical cancer Grandmother (Maternal) Thyroid disease Denies family history of Ovarian cancer Breast cancer Colorectal cancer Past Surgical History Surgical History S/P wisdom tooth extraction S/P cholecystectomy S/P section x2 Past Anesthesia History No Hx of Anesthesia Complications and No Family Hx of Anesthesia Complications History of PONV No Hx of PONV and No Hx of Motion Sickness Social History Smoking Status: Never smoker Do You Dip or Chew Tobacco: No Hx Alcohol Use: No Hx Substance Use: No substance use type: does not use Physical Exam Vital Signs Last Vital Signs Temp 98.1 F 08/23/23 07:59 Pulse 112 H 08/23/23 08:03 Resp 20 08/23/23 07:59 BP 124/65 08/23/23 08:03 ENMT Mouth: + chipped teeth (Upper right front) Thyromental Distance: > or= 3.5 Finger Breadths Mallampati Class: II Neck normal visual inspection Respiratory normal respiratory effort Auscultation: lungs clear to auscultation bilaterally Cardiovascular Rate/Rhythm: regular rate and regular rhythm
[2023-08-23 08:28] LABS: Basophils # (auto) 0.03 K/uL (0.00-0.20); Basophils % (auto) 0.2 %; Eosinophils # (auto) 0.03 K/uL (0.00-0.50); Eosinophils % (auto) 0.2 %; Hemoglobin 12.1 g/dl (12.0-16.0); Immature Granulocytes # (auto) 0.17 K/uL (0.01-0.20); Immature Granulocytes % (auto) 1.1 %; Lymphocytes # (auto) 2.04 K/uL (1.20-3.40); Mean Corpuscular Hemoglobin 29.7 pg (25.0-34.0); Mean Corpuscular Hgb Conc 33.6 g/dL (32.0-36.0); Mean Corpuscular Volume 88.5 fL (80.0-100.0); Mean Platelet Volume 10.3 fL (9.4-12.4); Monocytes # (auto) 1.02 K/uL (0.11-0.59); Monocytes % (auto) 6.5 %; Neutrophils # (auto) 12.39 K/uL (1.40-6.50); Platelet Count 278 K/uL (130-400); RDW Standard Deviation 41.5 fL (36.4-46.3); Red Blood Count 4.07 M/uL (4.20-5.40); White Blood Count 15.68 K/ul (4.8-10.8)
[2023-08-23] MEDS: AZITHROMYCIN 500 MG in DEXTROSE 5% 250 ML IV SCH (08:29)
[2023-08-23] MEDS ORDERED: HYDROmorphone INJ 0.5 MG/0.5 ML SYR IV PRN (09:03)
[2023-08-23] MEDS ORDERED: MoRPHine SULFATE PF 1 MG/ML 10 ML AMP/VIAL INT SPINAL ONE (09:03)
[2023-08-23] MEDS ORDERED: MEPERIDINE HCL 25 MG/ML CARP/VIAL IV PRN (09:03)
[2023-08-23] MEDS ORDERED: LACTATED RINGER'S 500 ML IV PRN (09:03)
[2023-08-23] MEDS ORDERED: NALOXONE HCL 0.4 MG/1 ML VIAL/CARP IV PRN (09:03)
[2023-08-23] MEDS ORDERED: NALOXONE HCL 0.08 MG in SYRINGE 1.8 ML IV PRN (09:03)
[2023-08-23] MEDS ORDERED: NALBUPHINE HCL 5 MG in SYRINGE 0 ML IV PRN (09:03)
[2023-08-23] MEDS ORDERED: ePHEDrine sulfate 50 MG/ML AMP IV PRN (09:03)
[2023-08-23] MEDS ORDERED: NALOXONE HCL 1 MG in SODIUM CHLORIDE 0.9% 1,000 ML IV PRN (09:03)
[2023-08-23] MEDS ORDERED: SODIUM CHLORIDE 0.9% 1,000 ML IV SCH (09:15)
[2023-08-23] MEDS ORDERED: NO NARCOTICS OR SEDATIVES SCH (09:15)
[2023-08-23] MEDS ORDERED: DC INTRASPINAL MORPHINE SCH (09:15)
[2023-08-23 09:17] LABS: Base Excess Cord Arterial Bld 0.4 mEq/L (-9-1.8); CO2 Cord Arterial Blood 52 mmHg (39.1-73.5); HCO3 Cord Arterial Blood 27 mmol/L (19.7-28.5); Oxygen Sat Cord Arterial Blood < 60.0 % (<60); PO2 Cord Arterial Blood < 20 mmHg (4.1-31.7); pH Cord Arterial Blood 7.33 (7.1-7.38)
[2023-08-23 09:20] LABS: Base Excess Cord Venous Blood -1.6 mEq/L (-7.7-1.9); Cord Venous Blood HCO3 22 mmol/L (18.4-26.8); Cord Venous Blood PCO2 34 mmHg (30.4-57.2); Cord Venous Blood PO2 38 mmHg (14.1-43.3); Cord Venous Blood pH 7.42 (7.20-7.44); O2 Saturation Cord Venous Bld 82.4 % (<68)
--- NOTE | 2023-08-23 09:21 | Operative Report ---
PG Post Operative Report Pre & Post Diagnosis Operation Date: 08/23/23 08:30 Pre-Op Diagnosis: 1. Prior x 2 2. 38 completed weeks and 6 days 3. PROM Post-Op Diagnosis: Same I identified the patient and participated in the time-out.: Yes Procedure Operation Date: 08/23/23 08:30 Actual Procedures p Section in LD; Repeat Lower Uterine Transverse Section for the of a live girl infant at 0852 - J. Terell Leung MD, FACOG Surgeon Evon Leung MD, FACOG Firer Tunnel Kiln Dung Souza RN Estimated Blood Loss 600 Findings Consistent with Post-Op Diagnosis Specimens cord blood, gases Description of Procedure Regional anesthetic had been given by anesthesia patient was prepped and draped with a leftward tilt preoperative antibiotics had been given in appropriate timing by anesthesiology. Once the prep was allowed to fully dry timeout was performed. Pickups with teeth were used to test the incision area was found to be adequate for incision as the patient did not feel sharp pain. Scalpel was used to make a Pfannenstiel incision on the lower abdomen. We then cut through the subcutaneous fat down to the level of the anterior rectus sheath fascia this was cut in the midline and then extended laterally with the curved Nunn scissors. At this stage we then placed 2 Jacinto clamps on the anterior aspect of the fascia. Using the curved Nunn's we are able to dissect the fascia superiorly away from the rectus muscles. Care was taken to maintain hemostasis. Jacinto clamps were then placed to the inferior aspect of the anterior sheath of the fascia. Fascia was then dissected away from the rectus muscles inferiorly towards the pubic bone. A Jacinto was then placed in the midline both inferiorly and superiorly. This was to allow exposure by retraction rectus muscles were in the midline with were then able to cut through the peritoneum and then enter the peritoneal cavity. Opening was enlarged to allow exposure of the peritoneal cavity both superiorly and inferiorly. Once adequate space was obtained a bladder retractor was placed to expose the lower segment Metzenbaums were used to dissect the bladder flap inferiorly away from the uterus. This was done sharply bladder retractor was then repositioned to expose the lower segment of the uterus Fresh scalpel was used to make a low transverse incision on the uterus. Uterus was then entered bluntly with the operators finger, membranes ruptured and the opening was enlarged using the operators fingers bluntly pulling superiorly and inferiorly to allow exposure. Baby was delivered by first flexion of the head elevation of the head out of the pelvis and then pressure by the journeyman operator assistant on the maternal abdomen. Baby's head was then delivered mouth and then nares were suctioned and then using gentle traction the baby was fully delivered. Live vigorous infant. Fluid was clear cord clamped and cut cord gases obtained cord blood obtained baby handed to pediatrics. Placenta removed was removed with traction we ensure the entire placenta was removed with a moist lap sponge into the uterus Uterus was then exteriorized. IV Pitocin had been started by anesthesia tone improved there were no extensions the uterus was then closed using 0 Monocryl in a 2 layer closure the first layer closed in a running locked fashion from left to right and then a second closure from left to right in a running nonlocked fashion. At this stage hemostasis was excellent. Uterus was placed back in the peritoneal cavity with suction irrigation out and inspection of the uterus at this stage revealed excellent hemostasis Retractors were removed urine color was clear at this stage of the case we inspected the rectus muscles they were hemostatic fascia was closed with 0 Vicryl subcutaneous fat was irrigated and closed with 3-0 Vicryl skin closed with 4-0 subcuticular Monocryl Note, uterus adnexa normal. Lower segment not thin I attest to the content of the Intraoperative Record and any orders documented therein. Any exceptions are noted below. OB Procedure Charges 92150
[2023-08-23] MEDS ORDERED: diphenhydrAMINE 50 MG/ML VIAL IV PRN (09:43)
[2023-08-23] MEDS ORDERED: MAGNESIUM HYDROXIDE SUSP 30 ML UDC PO PRN (09:43)
[2023-08-23] MEDS ORDERED: HYDROCORTISONE ACETATE 25 MG SUPP PR PRN (09:43)
[2023-08-23] MEDS ORDERED: SENNA 8.6 MG TAB PO PRN (09:43)
[2023-08-23] MEDS ORDERED: LACTATED RINGER'S 1,000 ML IV SCH (09:43)
[2023-08-23] MEDS ORDERED: BENZOCAINE 20% SPRY 85 APPLN/85 GM CAN EXT PRN (09:43)
[2023-08-23] MEDS ORDERED: diphenhydrAMINE Capsule 25 MG CAP PO PRN (09:43)
--- NOTE | 2023-08-23 09:47 | Anesthesiology Progress Note ---
Date of Service August 23, 2023 Anesthesia Post Procedure Vital Signs Vital Signs: Temp Pulse Resp BP Pulse Ox 08/23/23 09:22 84 109/55 L 100 08/23/23 08:15 20 08/23/23 08:15 20 08/23/23 08:03 112 H 124/65 08/23/23 07:59 36.7 C 20 Transfer of Care Handoff Completed per policy Notes Mental Status: alert / awake / arousable Patient Amnestic to Procedure: Yes Nausea / Vomiting: adequately controlled Pain: adequately controlled Airway Patency, RR, SpO2: stable & adequate BP & HR: stable & adequate Hydration State: stable & adequate Neuraxial Anesthesia: was administered and sensory block is resolving Anesthetic Complications: no major complications apparent and Pt Satisfied with anesthetic care
[2023-08-23] MEDS: DIPHTHER/TETAN/PERTUS Vaccine (Tdap, Adol/Adult) 0.5mL IM ONE (10:03)
[2023-08-23] MEDS: ONDANSETRON INJ 2 MG/ML 2 ML VIAL IV PRN (12:09)
[2023-08-23] MEDS: KETOROLAC 30 MG/ML VIAL IV PRN (12:53)
[2023-08-23] MEDS: SIMETHICONE 80 MG CHEW PO SCH (12:54)
[2023-08-23] MEDS: OXYTOCIN 20 UNITS/LR 1,002 ML IV SCH (16:31)
[2023-08-23] MEDS: DOCUSATE SODIUM 100 MG CAP PO SCH (20:03)
[2023-08-24] MEDS ORDERED: KETOROLAC 30 MG/ML VIAL IV PRN (03:04)
[2023-08-24] MEDS ORDERED: ONDANSETRON INJ 2 MG/ML 2 ML VIAL IV PRN (03:04)
[2023-08-24] MEDS ORDERED: PROMETHAZINE HCL 25 MG in SODIUM CHLORIDE 0.9% 50 ML IV PRN (03:04)
[2023-08-24] MEDS: IBUPROFEN 600 MG TAB PO PRN (03:15)
[2023-08-24] MEDS: oxyCODONE/ACETAMINOPHEN 5mg/325mg TAB PO PRN (03:15)
[2023-08-24 06:29] LABS: Basophils # (auto) 0.02 K/uL (0.00-0.20); Basophils % (auto) 0.1 %; Eosinophils # (auto) 0.06 K/uL (0.00-0.50); Eosinophils % (auto) 0.4 %; Hematocrit (blood only) 30.8 % (37.0-47.0); Hemoglobin 10.2 g/dl (12.0-16.0); Immature Granulocytes # (auto) 0.12 K/uL (0.01-0.20); Immature Granulocytes % (auto) 0.9 %; Lymphocytes % (auto) 22.4 %; Mean Corpuscular Hemoglobin 29.7 pg (25.0-34.0); Mean Corpuscular Hgb Conc 33.1 g/dL (32.0-36.0); Mean Corpuscular Volume 89.8 fL (80.0-100.0); Mean Platelet Volume 10.4 fL (9.4-12.4); Monocytes # (auto) 0.95 K/uL (0.11-0.59); Monocytes % (auto) 6.9 %; Neutrophils # (auto) 9.56 K/uL (1.40-6.50); Neutrophils % (auto) 69.3 %; Platelet Count 230 K/uL (130-400); RDW Coefficient of Variation 13.1 % (11.5-14.5); RDW Standard Deviation 42.5 fL (36.4-46.3); Red Blood Count 3.43 M/uL (4.20-5.40); White Blood Count 13.81 K/ul (4.8-10.8)
--- NOTE | 2023-08-24 07:22 | Obstetrical Progress Note ---
Date of Service <Tonia Loza MD - Last Filed: 08/24/23 07:22> August 24, 2023 Assessment & Plan <Tonia Loza MD - Last Filed: 08/24/23 07:22> (1) Encounter for assessment: Plan Patient with the above mentioned history and findings was evaluated at bedside and found awake, alert, oriented in all spheres, afebrile, and in no acute distress. Vital signs showed no fever and blood pressures remained stable. Her blood type is A pos and today's hemoglobin is adequate at 10.2 g/dL. Serologies are positive for GBS (treated intrapartum) and patient is Rubella immune. Overall, patient is doing well clinically. Therefore, will encourage ambulation as tolerated and will resume regular diet. Continue routine pp course. All questions were answered. <Evon Leung MD, FACOG - Last Filed: 08/24/23 07:33> (1) Encounter for assessment: Subjective <Tonia Loza MD - Last Filed: 08/24/23 07:22> Neisha is a 27 y/o female who is POD #1 following rLTCS at 39 5/7 weeks. She reports feeling well overall this morning. Refers moderate abdominal cramping & 4/10 pain well managed on analgesics. Voiding spontaneously after catheter removal. Tolerating crackers overnight and able to ambulate some. Has not yet passed gas or had a bm yet. Has some persistent lochia with some improvement this morning. Currently . Constitutional: no fever, no chills or no sweats Denies shortness of breath or difficulty breathing. Cardiovascular: no chest pain or no palpitations Breast: no breast pain Genitourinary (female): no dysuria Neurologic: no headache(s) Denies changes in vision. Physical Exam <Tonia Loza MD - Last Filed: 08/24/23 07:22> General: Alert. Oriented to person, time, and place. Afebrile. No acute distress. Cardiac: Regular rate and rhythm, no murmurs/rubs/gallops. Respiratory: Clear to auscultation bilaterally a/p, no wheezes/rales/rhonchi. No increased work of breathing. Symmetrical chest rise. No respiratory distress. Abdomen: Soft, nontender, nondistended. Bowel sounds present. Low transverse surgical scar clean, without surrounding erythema or suppuration, and healing well. Uterus: Uterine fundus firm, appropriately tender, and palpable at umbilicus. Lower Extremities: mild bilateral LE swelling. No deep calf pain. Matthew's negative bilaterally. Psych: Euthymic affect. Mood and affect congruence. Regular speech rate and content. Results & Data <Tonia Loza MD - Last Filed: 08/24/23 07:22> Vital Signs (Past 12 Hours) Vital Signs Temp Pulse Resp BP Pulse Ox O2 Del Method 08/24/23 03:10 36.7 C 73 18 93/60 L 97 Room Air 08/24/23 03:00 18 99 08/24/23 02:02 18 100 08/24/23 01:10 18 98 08/24/23 00:30 18 96 08/23/23 23:13 18 96 08/23/23 23:04 36.8 C 73 18 99/55 L 99 Room Air 08/23/23 22:10 18 98 08/23/23 21:30 18 97 08/23/23 20:01 18 98 Supervising Physician <Evon Leung MD, FACOG - Last Filed: 08/24/23 07:33> Co-Signing Physician Notes Resident Physician Supervision Note: I was present with [Name of resident] during the history and exam. I discussed the case with the resident and agree with the findings and plan as documented in the note. Any exceptions or clarifications are listed here: [None] Documented By: Evon Leung MD, FACOG
[2023-08-24] MEDS: PRENATAL VITAMIN 1 TAB PO SCH (07:29)
[2023-08-24] MEDS: FERROUS SULFATE 325 MG TAB PO SCH (07:29)
--- NOTE | 2023-08-24 11:30 | Communication Note ---
Date of Service: August 24, 2023 Nursing made provider aware of pt being tearful. Had been ok during AM rounding but over last few nursing checks, pt appeared to be tearful. Eventually reported having mood/depression feelings. noted pt has hx PPD so provider made aware. On my eval, pt appears to have been recently tearful but ok at this point. Says feeling sad but no Si/HI. Had PPD for few months after first, says for a few days with last - had previously mentioned first delivery was not ideal for her. Never been formally treated. Nothing specific triggers emotions, nothing during delivery or pp course that has made it worse - says this is just kind of how it is after babies for her. Discussed mental health liaison consult as she is interested in going home tomorrow still and pt amenable.
[2023-08-24] MEDS: bisacodyL 5 MG TABEC PO SCH (20:13)
[2023-08-25 06:41] LABS: Hematocrit (blood only) 30.6 % (37.0-47.0); Hemoglobin 10.2 g/dl (12.0-16.0)
--- NOTE | 2023-08-25 07:01 | Obstetrical Progress Note ---
Date of Service <Tonia Loza MD - Last Filed: 08/25/23 08:26> August 25, 2023 Assessment & Plan <Tonia Loza MD - Last Filed: 08/25/23 08:26> (1) Encounter for assessment: Plan Patient with the above mentioned history and findings was evaluated at bedside and found awake, alert, oriented in all spheres, afebrile, and in no acute distress. Vital signs showed no fever and blood pressures remained stable but on the soft side. She has not had symptoms such as lightheadedness, dizziness with standing, palpitations, or tachycardia. Her blood type is A pos and today's hemoglobin is adequate at 10.2 g/dL. Serologies are positive for GBS (treated intrapartum) and patient is Rubella immune. Overall, patient is doing well clinically and meeting the desired milestone for her course. Therefore, will discharge patient today. After discussion of higher risk of developing pp blues/depression given her history of having this, discussed management options and patient agreeable to start Sertraline 25mg for 5 days then take the full 50mg dose. She is also encouraged to f/u with her PCP. Patient was counselled on discharge instructions. She is to make an appointment with her OB for 6 weeks after discharge for follow up evaluation. All questions were answered. <Trang Meza DO - Last Filed: 08/25/23 08:47> (1) Encounter for assessment: Subjective <Tonia Loza MD - Last Filed: 08/25/23 08:26> Neisha is a 27 y/o female who is POD #2 following rLTCS at 39 5/7 weeks. She reports feeling well overall this morning. Refers moderate abdominal cramping & 4/10 pain well managed on analgesics. Voiding spontaneously. Tolerating diet and able to ambulate some. Has passed gas but has not had a bm yet. Has some persistent lochia with some improvement this morning. Currently . Patient had been experiencing increased tearfulness, sadness and anxiety in her course. She refers she has had similar symptoms after her previous pregnancies (first with pp depression and second with pp blues). She has only been treated in the past with a short course of Buspar which did not help her. No current thoughts to hurt herself, her baby, or others. Constitutional: no fever, no chills or no sweats Denies shortness of breath or difficulty breathing. Cardiovascular: no chest pain or no palpitations Breast: no breast pain Genitourinary (female): no dysuria Neurologic: no headache(s) Denies changes in vision. Physical Exam <Tonia Loza MD - Last Filed: 08/25/23 08:26> General: Alert. Oriented to person, time, and place. Afebrile. No acute distress. Cardiac: Regular rate and rhythm, no murmurs/rubs/gallops. Respiratory: Clear to auscultation bilaterally a/p, no wheezes/rales/rhonchi. No increased work of breathing. Symmetrical chest rise. No respiratory distress. Abdomen: Soft, nontender, nondistended. Bowel sounds present. Low transverse surgical scar clean, with small amount of old/dry blood in central part of incision but no active bleed, without surrounding erythema or suppuration, and healing well. Uterus: Uterine fundus firm, appropriately tender, and palpable below umbilicus. Lower Extremities: mild bilateral LE swelling. No deep calf pain. Matthew's negative bilaterally. Psych: Euthymic affect. Mood and affect congruence. Regular speech rate and content. Results & Data <Tonia Loza MD - Last Filed: 08/25/23 08:26> Vital Signs (Past 12 Hours) Vital Signs Temp Pulse Resp BP Pulse Ox O2 Del Method 08/24/23 23:51 36.8 C 78 18 96/61 L 96 Room Air 08/24/23 20:02 36.8 C 81 18 99/64 L 96 Room Air Supervising Physician <Trang Meza DO - Last Filed: 08/25/23 08:47> Co-Signing Physician Notes Resident Physician Supervision Note: I was present with Dr. Loza during the history and exam. I discussed the case with the resident and agree with the findings and plan as documented in the note. Any exceptions or clarifications are listed here: POD#2, desires DC home. Concerns about depression - would like to start Zoloft, Rx sent. Will followup in the next 2-4w with PCP. Rx Percocet sent to [facility]. Documented By: Trang Meza DO
[2023-08-25 09:05] VITALS: BP 98/61; RESP 16; TEMP 97.7; O2SAT 95
[2023-08-25] MEDS ORDERED: bisacodyL 10 MG SUPP PR PRN (09:18)
[2023-08-25] MEDS: SERTRALINE HCL 50 MG TABLET PO ONE (09:40)
[2023-08-25 09:56] VITALS: PULSE 73
--- NOTE | 2023-08-30 07:52 | Discharge Summary ---
Date of Service August 30, 2023 Admission HPI Per Admitting Provider KIERRA Calculator Estimated Delivery Date Method Current WG Current Estimate 08/31/23 Ultrasound #1 38w 3d Other Estimates 08/25/23 LMP (Certain) 39w 2d LMP: 11/18/22 : 4 Full term: 2 Premature: 0 Total Number of Induced Abortions: 0 Total Number of Spontaneous Abortions: 1 Ectopics: 0 Multiple births: 0 Number of Living Children: 2 and Delivery Plans Previous x 2 - Repeat at 39 weeks. C/S SCHEDULED FOR 08/24/[address] RUIZ AND DR. MEZA ASSIST Obesity (BMI between 35-39 @ beginning of ) *Growth US @ 32 wks *Weekly NSTs @ 36wks GBS Positive *Treat in Labor Admission Exam (Per Admitting) Constitutional WD/WN, vitals as above well developed and well nourished Respiratory normal respiratory effort, lungs clear to auscultation normal respiratory effort Cardiovascular RRR, no murmur, no edema Gastrointestinal (Abdomen) normal bowel sounds, soft, nontender, no hepatosplenomegaly Discharge Data Consultations 08/23/23 07:56 Consult Anesthesiology Stat 08/24/23 11:30 Consult Mental Health [Consult Psychiatry] Routine Procedures Performed Operation Date: 08/23/23 08:30 Actual Procedures p Section in LD; Repeat Lower Uterine Transverse Section for the of a live girl at 0852 - . Terell Leung MD, [facility] Course (1) Encounter for assessment: Plan Patient with the above mentioned history and findings was evaluated at bedside and found awake, alert, oriented in all spheres, afebrile, and in no acute distress. Vital signs showed no fever and blood pressures remained stable but on the soft side. She has not had symptoms such as lightheadedness, dizziness with standing, palpitations, or tachycardia. Her blood type is A pos and today's hemoglobin is adequate at 10.2 g/dL. Serologies are positive for GBS (treated intrapartum) and patient is Rubella immune. Overall, patient is doing well clinically and meeting the desired milestone for her course. Therefore, will discharge patient today. After discussion of higher risk of developing pp blues/depression given her history of having this, discussed management options and patient agreeable to start Sertraline 25mg for 5 days then take the full 50mg dose. She is also encouraged to f/u with her PCP. Patient was counselled on discharge instructions. She is to make an appointment with her OB for 6 weeks after discharge for follow up evaluation. All questions were answered. Supervising Physician Co-Signing Physician Notes Resident Physician Supervision Note: I was present with Dr. Loza during the history and exam. I discussed the case with the resident and agree with the findings and plan as documented in the note. Any exceptions or clarifications are listed here: POD#2, desires DC home. Concerns about depression - would like to start Zoloft, Rx sent. Will followup in the next 2-4w with PCP. Rx P[facility]ocet [facility]. Documented By: Trang Meza DO Coding Level of Care Code None Diagnoses Encounter for assessment Z39.2
== END 2023-08-25 12:00 | disposition home or self-care (01) | DRG 788 ==
LOC: OPB 07:50 → 4S1 07:51 → 4E2 12:57
DX: Z37.0 Single live birth; O99.824 Streptococcus B carrier state complicating childbirth; O34.211 Maternal care for low transverse scar from previous cesarean delivery; O42.02 Full-term premature rupture of membranes, onset of labor within 24 hours of rupture; Z23 Encounter for immunization; Z88.1 Allergy status to other antibiotic agents; Z3A.39 39 weeks gestation of pregnancy